=== PATIENT | male | born 1990 | race American Indian/Alaskan Native ===

== ENCOUNTER 2021-10-20 21:17 | Emergency (ER) | payer SELFPAY ==
--- NOTE | 2021-10-20 23:06 | Emergency Department Report ---
HPI - General Chief Complaint: High BP Time Seen by Provider: 10/20/21 22:55 - HPI HPI: Room 3 The patient is a 31-year-old male present with chief complaint of hypertension. Patient states he was checked himself into [facility] in order to "isolate h imself" from bad influences/recreational drugs. The patient states during intake he was found to be hypertensive and sent to the ED for medical clearance. Patient denied ever having any complaints. In the ED the patient was found to be normotensive with a BP of 120/87 in the left upper extremity and 114/76 in the right upper extremity. Patient denies complaints ED Past Medical Hx - Past Medical History Previous Medical History?: No - Surgical History Past Surgical History?: No - Family History Family history: no significant - Social History Smoking Status: Current Every Day Smoker (1/2 pack/day) Substance Use Type: Alcohol (Frequently), Marijuana ED Review of Systems ROS: Stated complaint: ELEVATED DYSTOLIC BP & DRUG SCREEN Other details as noted in HPI Constitutional: no symptoms reported Eyes: denies: eye pain ENT: denies: throat pain Respiratory: no symptoms reported Cardiovascular: denies: chest pain Endocrine: no symptoms reported Gastrointestinal: denies: abdominal pain Genitourinary: denies: dysuria Musculoskeletal: denies: back pain Neurological: denies: headache Physical Exam - Physical Exam Vital Signs: Vital Signs 10/20/21 10/20/21 10/20/21 21:34 22:15 22:16 Pulse Rate 60 62 Respiratory 16 15 15 Rate Blood Pressure 121/79 Blood Pressure 152/106 [Right] O2 Sat by Pulse 98 100 100 Oximetry Physical Exam: GENERAL: The patient is well-developed well-nourished male lying on stretcher not appearing to be in acute distress. [] HEENT: Normocephalic. Atraumatic. Extraocular motions are intact. Patient has moist mucous membranes. NECK: Supple. Trachea midline CHEST/LUNGS: Clear to auscultation. There is no respiratory distress noted. HEART/CARDIOVASCULAR: Regular. There is no tachycardia. There is no gallop rub or murmur. BP right upper extremity 114/76, BP left upper extremity 120/87 ABDOMEN: Abdomen is soft, nontender. Patient has normal bowel sounds. There is no abdominal distention. SKIN: There is no rash. There is no edema. There is no diaphoresis. NEURO: The patient is awake, alert, and oriented. The patient is cooperative. The patient has no focal neurologic deficits. The patient has normal speech. GCS 15 MUSCULOSKELETAL: There is no evidence of acute injury. ED Course Vital Signs 10/20/21 10/20/21 10/20/21 21:34 22:15 22:16 Pulse Rate 60 62 Respiratory 16 15 15 Rate Blood Pressure 121/79 Blood Pressure 152/106 [Right] O2 Sat by Pulse 98 100 100 Oximetry ED Medical Decision Making - Differential Diagnosis Normotensive Critical care attestation.: If time is entered above; I have spent that time in minutes in the direct care of this critically ill patient, excluding procedure time. ED Disposition Clinical Impression: Normal blood pressure Disposition: [address] [place] [address] Is pt being admited?: No Does the pt Need Aspirin: No Condition: Stable Additional Instructions: Return to the emergency department should you develop worsening symptoms, inability to tolerate food or liquids, high fever or any other concerns Referrals: [facility] [Provider Group] - 3-5 Days Time of Disposition: 23:05
[2021-10-21 00:39] LABS: Amphetamine Screen,Urine PRESUMPTIVE NEGATIVE; Benzodiazepines Screen,Urine PRESUMPTIVE NEGATIVE; Cannabinoid Screen,Urine PRESUMPTIVE POSITIVE; Cocaine Screen,Urine PRESUMPTIVE POSITIVE; Methadone Screen,Urine PRESUMPTIVE NEGATIVE; Opiate Screen,Urine PRESUMPTIVE NEGATIVE
[2021-10-21 09:21] VITALS: BP 118/86
== END 2021-10-21 09:21 ==
LOC: ED 21:17
DX: I10 Essential (primary) hypertension (principal); F17.200 Nicotine dependence, unspecified, uncomplicated; F10.20 Alcohol dependence, uncomplicated; F12.90 Cannabis use, unspecified, uncomplicated
CPT/HCPCS: 36415; 80307; 80320; 99283; 99285; G0480